=== PATIENT | female | born 1965 | race Caucasian/White ===

== ENCOUNTER 2020-10-23 09:45 | Outpatient (CLI) | payer OTHER, SELFPAY ==
--- NOTE | 2020-10-23 09:57 | MM_ITS ---
WS: [id number] Exam: [id number] Date/Time of Exam: 10/23/2020 10:02 AM Reason For Exam: SCREENING VIEWS: MLO and CC views both breasts. Comparison made with prior exam of 01/10/2017, 02/08/2018, 04/03/2019.. Findings: There was no sign of mass, architectural distortion or suspicious calcification in either breast. Sc attered fibroglandular densities MM/[place] [id number] Impression: BI-RADS: 2-Benign FOLLOW-UP: 1 Year Follow-up This mammogram was also analyzed by the Computer Aided Detection System [employer].
== END 2020-10-23 09:46 | disposition home or self-care (01) ==
PROVIDERS: PCP Physician Assistant; Visit Provider Physician Assistant
DX: Z12.31 Encounter for screening mammogram for malignant neoplasm of breast (principal)
CPT/HCPCS: 77067

== ENCOUNTER 2021-12-02 08:49 | Day surgery (SDC) | payer OTHER, SELFPAY ==
[2021-12-01 12:39] VITALS: BMI 37.8
[2021-12-02 09:18] VITALS: BP 162/100; PULSE 82; RESP 18; TEMP 36.4; O2SAT 98
[2021-12-02] MEDS: sodium chloride 0.9% 1,000 ML 30 ML IV (09:31)
--- NOTE | 2021-12-02 10:17 | ANES.PREANE2 ---
Pre-Anesthetic Assessment Height/Weight: Height 1.63 m Weight 99.79 kg Temp Pulse Resp BP Pulse Ox O2 Del Method 97.5 F L 82 18 162/100 98 12/02/21 09:18 12/02/21 09:18 12/02/21 09:18 12/02/21 09:18 12/02/21 09:18 12/02/21 09:18 Operation Date: 12/02/21 10:30 Proposed Procedures p Colonoscopy(Not Applicable) - Franky Kahn DO Familial anesthetic complications: none Was Beta Reba taken within 24 hours: N/A Was Clonidine taken within 24 hours: N/A Last intake: Intake Last Liquid Date 12/01/21 Last Liquid Time 22:00 Last Solid Date 11/30/21 Last Solid Time 16:30 Social No alcohol and No tobacco Exam alert, oriented x 3, clear to auscultation bilaterally and regular rate & rhythm Airway Mallampati: Class III Dentition: full CV/HEM Hypertension Metabolic Hyperlipidemia and Morbid Obesity Anesthetic Plan ASA status: 2 Anesthesia: MAC Risk of > 500 ml blood loss (7ml/kg in children): No Medications/Allergies Home Medications Medication Instructions Recorded Confirmed Last Taken Type amlodipine 5 mg tablet 5 mg PO ONCE 09/18/21 12/02/21 12/01/21 History pravastatin 40 mg tablet 40 mg PO ONCE 09/18/21 12/02/21 12/01/21 History Allergies Allergy/AdvReac Type Severity Reaction Status Date / Time No Known Allergies Allergy Unverified 12/02/21 09:13 Current Medications Generic Name Dose Route Start Last Admin Trade Name Freq PRN Reason Stop Dose Admin Sodium Chloride 1,000 mls @ 30 mls/hr 12/02/21 09:15 12/02/21 09:31 Sodium Chloride 0.9% IV 12/03/21 09:14 30 mls/hr .Q24H JAI Administration Data Anesthesia Cardiac Studies: No Data to Display
--- NOTE | 2021-12-02 10:22 | P.HP_ITS ---
Providers/Chief Complaint Primary Care Provider: Sindhu Vanegas Chief Complaint: encounter for screening for malignant neoplasm History of Present Illness Adriana Adams is a 56 year old female who is here for a screening colonoscopy. Her last colonoscopy was 10 years ago and was within normal limits. She has no complaints. Review of Systems General: Reports: 10 or more systems reviewed and unremarkable except in HPI and below Medications/Allergies Home Medications Medication Instructions Recorded Confirmed Last Taken Type amlodipine 5 mg tablet 5 mg PO ONCE 09/18/21 12/02/21 12/01/21 History pravastatin 40 mg tablet 40 mg PO ONCE 09/18/21 12/02/21 12/01/21 History Allergies Allergy/AdvReac Type Severity Reaction Status Date / Time No Known Allergies Allergy Unverified 12/02/21 09:13 Vitals/I&O/Wt Last Vital Signs Temp 97.5 F L 12/02/21 09:18 Pulse 82 12/02/21 09:18 Resp 18 12/02/21 09:18 BP 162/100 12/02/21 09:18 Pulse Ox 98 12/02/21 09:18 O2 Del Method 12/02/21 09:18 Weight last 48 hrs Weight 220 lb Physical Exam Narrative: General : Patient is well developed , no acute distress, oriented x3 Head : Normal cephalic, a-traumatic. Ears : Pinnae and external canal are normal. Hearing is normal. Eyes : PERRLA, Sclera and injection are normal. No conjunctival discharge. Nose : Mucous membranes are without erythema. Throat : buccal mucosa is normal, gums are without significant recession or hypertrophy. Lungs : Equal chest rise bilaterally, no use of accessory muscles, trachea is midline. Cor : Rate and rhythm are normal. Abdomen : Soft, ND, NT, no g/r/m Extremities : No edema, no cyanosis or clubbing, dorsalis pedis pulses are present bilaterally, non-tender to palpation of calves. Upper extremities are normal bilaterally. Back : non-tender to palpation, no CVA tenderness. Neuro : CN II - XII intact, Upper and lower extremities have equal and full s trength A&P Assessment and plan (1) Colon cancer screening: Status: Acute Plan Colonoscopy The risks and benefits of the procedure, including bleeding, infection, intestinal perforation requiring surgery, missed lesion, or explained to the patient. She is understanding of the risks and wishes to proceed. Attestations Medical Necessity Statement*: Patient will be discharged home Coding Level of Care Code Acute Environmental Remediation Consultant for Chg Fwd Diagnoses Colon cancer screening Z12.11
[2021-12-02 11:27] VITALS: BP 80/60; PULSE 84; RESP 16; TEMP 36.2; O2SAT 97
[2021-12-02 11:33] VITALS: BP 111/62
[2021-12-02 11:39] VITALS: BP 120/87; PULSE 82; RESP 18; O2SAT 97
--- NOTE | 2021-12-02 12:14 | ANE.PACU2 ---
Inpatient post-anesthesia follow up: Airway intact: Yes Vital signs: Temperature 97.2 F Pulse Rate 82 Respiratory Rate 18 Blood Pressure 120/87 Pulse Oximetry 97 Oxygen Delivery Me thod Room Air Oxygen Flow Rate 4.5 Fraction of Inspir ed Oxygen Hydration adequate: Yes Nausea and vomiting: No Pain level: 1 Mental status: Baseline
== END 2021-12-02 11:51 | disposition home or self-care (01) ==
PROVIDERS: PCP Physician Assistant; Visit Provider Surgery
PROC: 0DJD8ZZ Inspection of Lower Intestinal Tract, Via Natural or Artificial Opening Endoscopic (ICD-10-PCS; CPT 45378; principal; 2021-12-02 10:30)
DX: Z12.11 Encounter for screening for malignant neoplasm of colon (principal); D12.2 Benign neoplasm of ascending colon; I10 Essential (primary) hypertension; E78.5 Hyperlipidemia, unspecified; E66.01 Morbid (severe) obesity due to excess calories; Z68.37 Body mass index [BMI] 37.0-37.9, adult
CPT/HCPCS: 45385; 88305; J2704; J7030